=== PATIENT | male | born 2000 | race Caucasian/White ===

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

== ENCOUNTER 2022-11-14 15:43 | Emergency (ER) | payer OTHER ==
[~2022-11-14] VITALS: Ht 162.5 cm; Wt 49.9 kg
[2022-11-14] MEDS ORDERED: CYCLOBENZAPRINE5 M3 PO (18:15)
== END 2022-11-14 18:47 | disposition home or self-care (01) ==
LOC: ED 15:43
DX: R07.89 Other chest pain (principal); J45.909 Unspecified asthma, uncomplicated; Z88.0 Allergy status to penicillin; Z88.1 Allergy status to other antibiotic agents; Z98.890 Other specified postprocedural states

== ENCOUNTER 2022-11-15 15:39 | Emergency (ER) | payer OTHER ==
[~2022-11-15] VITALS: Ht 162.5 cm; Wt 51.3 kg
[~2022-11-15 15:39] MED LIST changes: +CYCLOBENZAPRINE5 M3 PO
== END 2022-11-15 19:41 | disposition left against medical advice (07) ==
LOC: ED 15:39
DX: S69.92XA Unspecified injury of left wrist, hand and finger(s), initial encounter (principal); Z88.0 Allergy status to penicillin; Z88.1 Allergy status to other antibiotic agents; Z53.21 Procedure and treatment not carried out due to patient leaving prior to being seen by health care provider; W26.9XXA Contact with unspecified sharp object(s), initial encounter; Y93.89 Activity, other specified; Y92.89 Other specified places as the place of occurrence of the external cause; Y99.8 Other external cause status

== ENCOUNTER 2022-12-16 10:46 | Inpatient (IN) | payer OTHER ==
[2022-12-16 10:57] VITALS: BP 128/88
[2022-12-16 11:36] LABS: BASO % 0.5 % (0.0-1.0); EOS # 0.1 10*3/uL (0.0-0.4); EOS % 1.3 % (1.0-4.0); LYMPH # 1.3 10*3/uL (1.3-4.4); LYMPH % 21.1 % (27.0-41.0); MEAN CELL VOLUME 94.5 fl (80.0-94.0); MEAN CORPUSCULAR HGB 32.1 pg (27.0-31.0); MEAN PLATELET VOLUME 8.8 fl (9.6-12.3); MONO # 0.5 10*3/uL (0.1-1.0); MONO % 7.4 % (3.0-9.0); NEUT # 4.3 10*3/uL (2.3-7.9); NEUT % 69.2 % (47.0-73.0); PLATELET COUNT AUTOMATED 271 10*3/uL (130-400); RED BLOOD COUNT 4.55 10*6/uL (4.50-5.90); RED CELL DISTRI WIDTH 12.2 % (0-14.5); WHITE BLOOD COUNT 6.3 10*3/uL (4.8-10.8)
[2022-12-16 11:50] LABS: ACT PARTIAL THROMBO TIME 30.4 SECONDS (20.0-32.1)
[2022-12-16 11:55] LABS: ALKALINE PHOSPHATASE 134 U/L (46-116); BUN 14 mg/dl (9-23); CHLORIDE 104 mmol/L (98-107); LIPASE 41 U/L (12-53); POTASSIUM 3.7 mmol/L (3.4-5.1); SGPT/ALT 13 U/L (10-49); TOTAL PROTEIN 7.7 gm/dL (6.0-8.0)
[2022-12-16 11:55] LABS: BILIRUBIN Negative (Negative); BLOOD Negative (Negative); CLARITY Clear (Clear); COLOR Yellow (Yellow); GLUCOSE Negative (Negative); KETONE Negative (Negative); LEUKO ESTERASE Negative (Negative); NITRITE Negative (Negative); PH 7.5 (4.5-8.0)
[2022-12-16] MEDS ORDERED: PRISTIQ100 MG PO (14:30)
[2022-12-16] MEDS ORDERED: METRONIDAZOLE500 M1 PO (16:30)
[2022-12-16] MEDS ORDERED: COLACE100 MG PO (16:30)
[2022-12-16] MEDS ORDERED: CIPRO500 MG PO (16:30)
== END 2022-12-16 16:42 | disposition home or self-care (01) | DRG 254 ==
LOC: ED 10:46 → EDHOLD 13:59 → 4E 15:25
PROVIDERS: Internal Medicine; ADMIT Student in an Organized Health Care Education/Training Program; ATTEND Student in an Organized Health Care Education/Training Program
DX: K35.80 Unspecified acute appendicitis (principal); F41.1 Generalized anxiety disorder; F33.0 Major depressive disorder, recurrent, mild; F17.290 Nicotine dependence, other tobacco product, uncomplicated; K59.09 Other constipation; N34.3 Urethral syndrome, unspecified; Z88.1 Allergy status to other antibiotic agents; Z88.0 Allergy status to penicillin; Z82.49 Family history of ischemic heart disease and other diseases of the circulatory system; Z80.3 Family history of malignant neoplasm of breast; Z78.9 Other specified health status

== ENCOUNTER 2022-12-21 10:03 | Emergency (ER) | payer OTHER ==
[~2022-12-21] VITALS: Ht 162.5 cm; Wt 50.8 kg
[~2022-12-21 10:03] MED LIST changes: +CIPRO500 MG PO; +COLACE100 MG PO; +METRONIDAZOLE500 M1 PO; +PRISTIQ100 MG PO
[2022-12-21 11:11] LABS: BASO % 0.6 % (0.0-1.0); EOS # 0.1 10*3/uL (0.0-0.4); EOS % 1.9 % (1.0-4.0); HEMATOCRIT 41.5 % (42.0-52.0); LYMPH # 1.2 10*3/uL (1.3-4.4); LYMPH % 22.2 % (27.0-41.0); MEAN CELL VOLUME 94.7 fl (80.0-94.0); MEAN CORPUSCULAR HGB 32.4 pg (27.0-31.0); MEAN CORPUSCULAR HGB CONC 34.2 g/dl (33.0-37.0); MEAN PLATELET VOLUME 8.7 fl (9.6-12.3); MONO # 0.4 10*3/uL (0.1-1.0); MONO % 6.8 % (3.0-9.0); NEUT # 3.5 10*3/uL (2.3-7.9); NEUT % 67.9 % (47.0-73.0); PLATELET COUNT AUTOMATED 218 10*3/uL (130-400); RED BLOOD COUNT 4.38 10*6/uL (4.50-5.90); RED CELL DISTRI WIDTH 12.4 % (0-14.5); WHITE BLOOD COUNT 5.2 10*3/uL (4.8-10.8)
[2022-12-21 11:34] LABS: ALKALINE PHOSPHATASE 119 U/L (46-116); BUN 10 mg/dl (9-23); CHLORIDE 106 mmol/L (98-107); LIPASE 33 U/L (12-53); POTASSIUM 3.7 mmol/L (3.4-5.1); SGPT/ALT 26 U/L (10-49); TOTAL PROTEIN 6.9 gm/dL (6.0-8.0)
[2022-12-21 11:37] LABS: BILIRUBIN Negative (Negative); BLOOD Negative (Negative); CLARITY Clear (Clear); COLOR Yellow (Yellow); GLUCOSE Negative (Negative); KETONE Negative (Negative); LEUKO ESTERASE Negative (Negative); NITRITE Negative (Negative); UROBILINOGEN 0.2 E.U./dl (0.0-1.0)
[2022-12-21 11:52] LABS: EPITHELIAL CELLS 0-2; RBC 0-2 rbc/hpf (0-2); WBC 0-2 wbc/hpf (0-5)
[2022-12-21] MEDS ORDERED: DULCOLAX STOOL100 MG PO (14:45)
== END 2022-12-21 16:23 | disposition home or self-care (01) ==
LOC: ED 10:03
PROVIDERS: Emergency Medicine
DX: R10.31 Right lower quadrant pain (principal); K59.00 Constipation, unspecified; J45.909 Unspecified asthma, uncomplicated; Z88.0 Allergy status to penicillin; Z88.1 Allergy status to other antibiotic agents; Z98.890 Other specified postprocedural states; Z87.891 Personal history of nicotine dependence

== ENCOUNTER 2023-12-20 17:55 | Emergency (ER) | payer MEDICAID ==
[~2023-12-20] VITALS: Ht 160 cm; Wt 50.8 kg
[~2023-12-20 17:55] MED LIST changes: +DULCOLAX STOOL100 MG PO
[2023-12-20] MEDS ORDERED: SEPTDS PO (18:37)
[2023-12-20] MEDS ORDERED: Sulfamethoxazole/Trimethopri 1 TAB TAB PO ONE (18:40)
[2023-12-20] MEDS ORDERED: Lidocaine Hydrochloride 2% 10 ML AMP SC ONE (18:40)
== END 2023-12-20 18:45 | disposition home or self-care (01) ==
LOC: ED 17:55
DX: S60.552A Superficial foreign body of left hand, initial encounter (principal); F41.9 Anxiety disorder, unspecified; J45.909 Unspecified asthma, uncomplicated; F17.200 Nicotine dependence, unspecified, uncomplicated; Z88.0 Allergy status to penicillin; Z88.1 Allergy status to other antibiotic agents; Z98.890 Other specified postprocedural states; W45.8XXA Other foreign body or object entering through skin, initial encounter; Y93.89 Activity, other specified; Y92.009 Unspecified place in unspecified non-institutional (private) residence as the place of occurrence of the external cause; Y99.8 Other external cause status

== ENCOUNTER 2024-04-25 19:51 | Emergency (ER) | payer MEDICAID ==
[~2024-04-25] VITALS: Ht 162.6 cm; Wt 50.8 kg
[~2024-04-25 19:51] MED LIST changes: +SEPTDS PO
[2024-04-25] MEDS ORDERED: Bacitracin Zinc 14 GM TUBE T ONE (20:45)
== END 2024-04-25 21:01 | disposition home or self-care (01) ==
LOC: ED 19:51
DX: S61.210A Laceration without foreign body of right index finger without damage to nail, initial encounter (principal); J45.909 Unspecified asthma, uncomplicated; F17.200 Nicotine dependence, unspecified, uncomplicated; Z88.0 Allergy status to penicillin; Z88.1 Allergy status to other antibiotic agents; Z98.890 Other specified postprocedural states; W25.XXXA Contact with sharp glass, initial encounter; Y93.E9 Activity, other interior property and clothing maintenance; Y92.009 Unspecified place in unspecified non-institutional (private) residence as the place of occurrence of the external cause; Y99.8 Other external cause status

== ENCOUNTER 2024-05-05 08:46 | Emergency (ER) | payer MEDICAID ==
[~2024-05-05] VITALS: Ht 160 cm; Wt 51.0 kg
== END 2024-05-05 09:41 | disposition home or self-care (01) ==
LOC: ED 08:46
DX: S61.210D Laceration without foreign body of right index finger without damage to nail, subsequent encounter (principal); J45.909 Unspecified asthma, uncomplicated; F17.200 Nicotine dependence, unspecified, uncomplicated; Z88.0 Allergy status to penicillin; Z88.1 Allergy status to other antibiotic agents; Z98.890 Other specified postprocedural states; W25.XXXD Contact with sharp glass, subsequent encounter

== ENCOUNTER 2024-06-08 11:26 | Emergency (ER) | payer MEDICAID ==
[~2024-06-08] VITALS: Ht 160 cm; Wt 50.8 kg
[2024-06-08] MEDS ORDERED: MAGNESIUM CITRATE 296 ML BOT PO ONE (11:55)
[2024-06-08] MEDS ORDERED: SODIUM CHLORIDE 0.9% 1,000 ML IV ONE (11:55)
[2024-06-08] MEDS ORDERED: Ondansetron Hydrochloride 4 MG/2 ML VIAL IV ONE (12:00)
[2024-06-08] MEDS ORDERED: SODIUM POLYSTYRENE SULFONATE 15 GM/60 ML BOT PO ONE (12:00)
[2024-06-08 12:10] LABS: BASO % 0.5 % (0.0-1.0); HEMATOCRIT 45.1 % (42.0-52.0); MEAN CELL VOLUME 90.6 fl (80.0-94.0); MEAN CORPUSCULAR HGB 31.1 pg (27.0-31.0); MEAN CORPUSCULAR HGB CONC 34.4 g/dl (33.0-37.0); MEAN PLATELET VOLUME 8.7 fl (9.6-12.3); MONO # 0.6 10*3/uL (0.1-1.0); MONO % 13.8 % (3.0-9.0); NEUT # 2.9 10*3/uL (2.3-7.9); NEUT % 67.7 % (47.0-73.0); PLATELET COUNT AUTOMATED 187 10*3/uL (130-400); RED BLOOD COUNT 4.98 10*6/uL (4.50-5.90); RED CELL DISTRI WIDTH 12.2 % (0-14.5); WHITE BLOOD COUNT 4.3 10*3/uL (4.8-10.8)
[2024-06-08 12:32] LABS: BUN 13 mg/dl (9-23); CHLORIDE 100 mmol/L (98-107); POTASSIUM 3.4 mmol/L (3.4-5.1)
== END 2024-06-08 13:14 | disposition home or self-care (01) ==
LOC: ED 11:26
PROVIDERS: Emergency Medicine
DX: K59.00 Constipation, unspecified (principal); R11.2 Nausea with vomiting, unspecified; J45.909 Unspecified asthma, uncomplicated; F17.200 Nicotine dependence, unspecified, uncomplicated; Z88.0 Allergy status to penicillin; Z88.1 Allergy status to other antibiotic agents; Z98.890 Other specified postprocedural states